=== PATIENT | male | born 1955 | race African-American/Black ===

== ENCOUNTER 2016-11-08 06:18 | Emergency (ER) | payer SELFPAY ==
--- NOTE | 2016-11-08 06:57 | ER Document Report ---
ED Extremity Problem, Lower - General Mode of Arrival: Ambulatory Information source: Patient TRAVEL OUTSIDE OF THE [place] IN LAST 30 DAYS: No - HPI Patient complains to provider of: Pain, Swelling Location: Ankle - right, Knee - right, Great Toe - right Occurred: Other - 2 weeks Onset/Duration: Persistent Recent injury: No - General Chief Complaint: Ankle Pain Stated Complaint: ANKLE PAIN Time Seen by Provider: 11/08/16 06:44 Notes: Patient is a 61 year old male with a history of hypertension and gout who presents to the ED with complaints of right great toe, right ankle/Achilles tendon and right knee pain and swelling with onset 2 weeks. Patient thinks this is a typical gout flare up for him. He states normally he only experiences gout in his toe but this time he is also experiencing similar symptoms in his ankle and knee. Patient has been wearing a brace on his right knee to help bring the swelling down. He denies any known accidents or injuries. (JULIO LARSEN) - Related Data Allergies/Adverse Reactions: No Known Drug Allergies Allergy (Verified 11/08/16 06:29) Past Medical History - General Information source: Patient - Social History Smoking Status: Unknown if Ever Smoked Family History: Reviewed & Not Pertinent - Past Medical History Cardiac Medical History: Reports: Hx Hypertension Renal/ Medical History: Denies: Hx Peritoneal Dialysis Musculoskeltal Medical History: Reports Hx Gout - Immunizations Hx Diphtheria, Pertussis, Tetanus Vaccination: Yes Review of Systems - Review of Systems Constitutional: No symptoms reported EENT: No symptoms reported Cardiovascular: No symptoms reported Respiratory: See HPI. denies: Short of breath Gastrointestinal: See HPI. denies: Abdominal pain Genitourinary: No symptoms reported Male Genitourinary: No symptoms reported Musculoskeletal: See HPI, Joint pain - right knee, ankle and great toe, Joint swelling - right knee, ankle and great toe Skin: No symptoms reported Hematologic/Lymphatic: No symptoms reported Neurological/Psychological: See HPI. denies: Headaches Physical Exam - General General appearance: Appears well, Alert In distress: None - HEENT Head: Normocephalic, Atraumatic Eyes: Normal Extraocular movements intact: Yes Pupils: PERRL - Respiratory Respiratory status: No respiratory distress Breath sounds: Normal - Cardiovascular Rhythm: Regular Heart sounds: Normal auscultation Murmur: No Pulses: Normal: Dorsalis pedis - Abdominal Inspection: Normal Distension: No distension Tenderness: Nontender - Extremities General upper extremity: Normal inspection, Normal ROM General lower extremity: Other - Normal pedal pulse on right, no significant edema, there is a right knee effusion, good ROM of right knee to 110 degrees. no erythema to the right lower extremity. lower extremity exam is otherwise normal - Neurological Neuro grossly intact: Yes - Psychological Associated symptoms: Normal affect, Normal mood - Skin Skin Temperature: Warm Skin Moisture: Dry Skin Color: Normal - Vital signs Vitals: Temp Pulse Resp BP Pulse Ox 98.4 F 86 20 216/111 H 94 11/08/16 06:29 11/08/16 06:29 11/08/16 06:29 11/08/16 06:29 11/08/16 06:29 Course - Re-evaluation Re-evalutation: 11/08/16 07:09 Pleasant 61-year-old male with history of gout in the past, now with discomfort in his right great toe, right posterior ankle/Achilles tendon, and right knee. I discussed the differential diagnosis with the patient, including gout as well as possible infection. We have discussed tapping the knee to obtain a fluid specimen, but the patient declines this. We will initiate colchicine and prednisone for presumed gout. He has an urgent care center that helps him care for his blood pressure issues. I have asked him to follow-up with them both for this chief complaint as well as his ongoing hypertension. (JELANI ROWAN) - Vital Signs Vital signs: Temp Pulse Resp BP Pulse Ox 98.0 F 76 20 189/121 H 97 11/08/16 07:48 11/08/16 07:48 11/08/16 07:48 11/08/16 07:48 11/08/16 07:48 Discharge - Discharge Clinical Impression: Gout flare Qualifiers: Gout site: ankle Condition: Good Disposition: HOME, SELF-CARE Instructions: Gout ([facility]), High Blood Pressure ([facility]), Steroid Medication Additional Instructions: Follow-up with your regular doctors for your high blood pressure. Take colchicine and prednisone as prescribed. Return to the emergency department if the pain worsens, if you have redness or more warmth, or if you have other urgent concerns. Prescriptions: Colchicine [Colchicine 0.6 mg Tablet] 0.6 mg PO ASDIR PRN #14 tablet MDD 6 tablets PRN Reason: Prednisone 20 mg PO DAILY #5 tablet Scribe Documentation - Scribe Written by Sudha:: sudha Gentile, 11/08/2016, 0729 acting as scribe for :: Rubin
[2016-11-08] MEDS ORDERED: COLCHICINE 0.6 MG TABLET PO ONE (07:05)
[2016-11-08] MEDS ORDERED: PREDNISONE 20 MG TABLET PO ONE (07:05)
[2016-11-08 07:52] VITALS: BP 189/121
== END 2016-11-08 07:48 | disposition home or self-care (01) ==
LOC: ER 06:18
DX: M10.9 Gout, unspecified (principal); M25.571 Pain in right ankle and joints of right foot; M25.561 Pain in right knee; M79.89 Other specified soft tissue disorders; I10 Essential (primary) hypertension
CPT/HCPCS: 99283; J7512

== ENCOUNTER 2017-08-26 15:35 | Emergency (ER) | payer SELFPAY ==
--- NOTE | 2017-08-26 16:56 | ER Document Report ---
ED Medical Screen (RME) - General Chief Complaint: Urinary Problem Stated Complaint: GENERAL WEAKNESS Time Seen by Provider: 08/26/17 16:41 Notes: This 62-year-old male patient comes emergency room complaining of what sounds like stress incontinence for the last 3 weeks. He reports that he notices some urine leaking when he is doing heavy lifting or up walking around on the job. 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 There is no frequency, no dysuria. He is also running low on the blood pressure medication he was prescribed on ER visit here a month ago. I have greeted and performed a rapid initial assessment of this patient. A comprehensive ED assessment and evaluation of the patient, analysis of test results and completion of the medical decision making process will be conducted by additional ED providers. TRAVEL OUTSIDE OF THE [place] IN LAST 30 DAYS: No - Related Data Allergies/Adverse Reactions: No Known Drug Allergies Allergy (Verified 11/08/16 06:29) Past Medical History - Social History Chew tobacco use (# tins/day): No Frequency of alcohol use: Occasional Drug Abuse: None - Past Medical History Cardiac Medical History: Reports: Hx Hypertension Renal/ Medical History: Denies: Hx Peritoneal Dialysis Musculoskeltal Medical History: Reports Hx Arthritis, Reports Hx Gout - Immunizations Hx Diphtheria, Pertussis, Tetanus Vaccination: Yes Physical Exam - Vital signs Vitals: Temp Pulse Resp BP Pulse Ox 98.7 F 79 24 H 182/104 H 97 08/26/17 15:46 08/26/17 15:46 08/26/17 15:46 08/26/17 15:46 08/26/17 15:46 Course - Vital Signs Vital signs: Temp Pulse Resp BP Pulse Ox 98.7 F 79 24 H 182/104 H 97 08/26/17 15:46 08/26/17 15:46 08/26/17 15:46 08/26/17 15:46 08/26/17 15:46
[2017-08-26 17:34] LABS: APPEARANCE,URINE SLIGHTLY-CLOUDY; BILIRUBIN,URINE NEGATIVE (NEGATIVE); COLOR,URINE YELLOW; GLUCOSE, URINE NEGATIVE (NEGATIVE); KETONES,URINE NEGATIVE (NEGATIVE); LEUKOCYTE ESTERASE,URINE LARGE (NEGATIVE); NITRITE,URINE NEGATIVE (NEGATIVE); PROTEIN,URINE 30 mg/dL (NEGATIVE); URINE SPECIFIC GRAVITY 1.017
[2017-08-26] MEDS ORDERED: DOXYCYCLINE HYCLATE 100 MG TABLET PO ONE (17:35)
[2017-08-26] MEDS ORDERED: CEFTRIAXONE INJ 250 MG VIAL IM ONE (17:35)
[2017-08-26] MEDS ORDERED: AZITHROMYCIN 1 GM SUSP PACKET PO ONE (17:35)
[2017-08-26] MEDS ORDERED: LIDOCAINE 1% INJ-PF (10 MG/ML) 30 ML SDV INFIL ONE (17:35)
--- NOTE | 2017-08-26 17:40 | ER Document Report ---
ED GI/ - General Chief Complaint: Urinary Problem Stated Complaint: GENERAL WEAKNESS Time Seen by Provider: 08/26/17 16:41 Mode of Arrival: Ambulatory Information source: Patient Notes: Chief complaint: Urethral discharge History of complain:( obtained from----patient) 62 years old male who had a sexual partnership 3 weeks ago, presents today with one-week history of whitish discharge from the urethra. No dysuria frequency urgency. Denies any abdominal pain. Denies any other constitutional symptoms. Onset: As above Duration: Gradual Severity: Mild Quality: Not contributory Context: As above Exacerbating factor and relieving factors: Not applicable REVIEW OF SYSTEMS: CONSTITUTIONAL : Denies fever, chills, or sweats. Denies recent illness. EENT: Denies eye, ear, throat, or mouth pain or symptoms. Denies nasal or sinus congestion or discharge. Denies throat, tongue, or mouth swelling or difficulty swallowing. CARDIOVASCULAR: Denies chest pain. Denies palpitations or racing or irregular heart beat. Denies ankle edema. RESPIRATORY: Denies cough, cold, or chest congestion. Denies shortness of breath, difficulty breathing, or wheezing. GASTROINTESTINAL: Denies distention. Denies nausea, vomiting, or diarrhea. Denies blood in vomitus, stools, or per rectum. Denies black, tarry stools. Denies constipation. GENITOURINARY: Denies difficulty urinating, painful urination, burning, frequency, blood in urine, or discharge. FEMALE GENITOURINARY: Denies vaginal bleeding, heavy or abnormal periods, irregular periods. Denies vaginal discharge or odor. MUSCULOSKELETAL: Denies back or neck pain or stiffness. Denies joint pain or swelling. SKIN: Denies rash, lesions or sores. HEMATOLOGIC : Denies easy bruising or bleeding. LYMPHATIC: Denies swollen, enlarged glands. NEUROLOGICAL: Denies confusion or altered mental status. Denies passing out or loss of consciousness. Denies dizziness or lightheadedness. Denies headache. Denies weakness or paralysis or loss of use of either side. Denies problems with gait or speech. Denies sensory loss, numbness, or tingling. Denies seizures. PSYCHIATRIC: Denies anxiety or stress. Denies depression, suicidal ideation, or homicidal ideation. ALL OTHER SYSTEMS REVIEWED AND NEGATIVE. PHYSICAL EXAMINATION: GENERAL: Well-appearing, well-nourished and in no acute distress. HEAD: Atraumatic, normocephalic. EYES: Pupils equal round and reactive to light, extraocular movements intact, conjunctiva are normal. ENT: Nares patent, oropharynx clear without exudates. Moist mucous membranes. NECK: Normal range of motion, supple without lymphadenopathy LUNGS: Breath sounds clear to auscultation bilaterally and equal. No wheezes rales or rhonchi. HEART: Regular rate and rhythm without murmurs ABDOMEN: Soft, nontender, nondistended abdomen. No guarding, no rebound. No masses appreciated. Examination of genitals-deferred Musculoskeletal: Normal range of motion, no pitting or edema. No cyanosis. NEUROLOGICAL: Cranial nerves grossly intact. Normal speech, normal gait. Normal sensory, motor exams PSYCH: Normal mood, normal affect. SKIN: Warm, Dry, normal turgor, no rashes or lesions noted. Examination of the genitals-no obvious lesions noted, but whitish discharge per urethra noted. Dictation was performed using [employer] voice recognition software TRAVEL OUTSIDE OF THE [place] IN LAST 30 DAYS: No - HPI Patient complains to provider of: Dysuria Severity at maximum: Moderate - Related Data Allergies/Adverse Reactions: No Known Drug Allergies Allergy (Verified 11/08/16 06:29) Past Medical History - Social History Smoking Status: Current Every Day Smoker Chew tobacco use (# tins/day): No Frequency of alcohol use: Occasional Drug Abuse: None Family History: Reviewed & Not Pertinent Patient has suicidal ideation: No Patient has homicidal ideation: No - Past Medical History Cardiac Medical History: Reports: Hx Hypertension Renal/ Medical History: Denies: Hx Peritoneal Dialysis Musculoskeltal Medical History: Reports Hx Arthritis, Reports Hx Gout - Immunizations Hx Diphtheria, Pertussis, Tetanus Vaccination: Yes Review of Systems - Review of Systems Notes: Dictated Physical Exam - Vital signs Vitals: Temp Pulse Resp BP Pulse Ox 98.7 F 79 24 H 182/104 H 97 08/26/17 15:46 08/26/17 15:46 08/26/17 15:46 08/26/17 15:46 08/26/17 15:46 - Notes Notes: Dictated Course - Vital Signs Vital signs: Temp Pulse Resp BP Pulse Ox 98.7 F 79 24 H 182/104 H 97 08/26/17 15:46 08/26/17 15:46 08/26/17 15:46 08/26/17 15:46 08/26/17 15:46 - Laboratory Laboratory results interpreted by me: 08/26/17 17:15 Urine Protein 30 H Urine Blood SMALL H Urine Urobilinogen 2.0 H Ur Leukocyte Esterase LARGE H Discharge - Discharge Clinical Impression: STD (male), Urethritis Condition: Fair Disposition: HOME, SELF-CARE Instructions: Urethritis ([facility]) Prescriptions: Doxycycline Hyclate 100 mg PO BID #20 tablet
[2017-08-26 18:50] VITALS: BP 205/105
[2017-08-26 20:01] LABS: CHLAM PCR NOT DETECTED (NOT DETECT); GON PCR DETECTED (NOT DETECT)
== END 2017-08-26 18:49 | disposition home or self-care (01) ==
LOC: ER 15:35
DX: N34.2 Other urethritis (principal); A64 Unspecified sexually transmitted disease; I10 Essential (primary) hypertension; F17.200 Nicotine dependence, unspecified, uncomplicated
CPT/HCPCS: 99283; 96372; 81001; 87491; 87591; J3490; Q0144; J0696

== ENCOUNTER 2018-07-13 06:11 | Observation (INO) | payer MEDICARE ==
[2018-07-13] MEDS ORDERED: AMLODIPINE BESYLATE 5 MG TABLET PO ONE (06:35)
--- NOTE | 2018-07-13 06:39 | ER Document Report ---
ED General - General Chief Complaint: Shortness Of Breath Stated Complaint: DIFIICULTY BREATHING Time Seen by Provider: 07/13/18 06:29 TRAVEL OUTSIDE OF THE [place] IN LAST 30 DAYS: No - HPI Notes: Patient is a 63-year-old male that presents to the emergency department for chief complaint of shortness of breath. Patient reports chronic shortness of breath that became worse today. 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 He has been borrowing a friend's albuterol inhaler because his ran out a few months ago. He states the friend's inhaler ran out about a week ago. Patient denies increased sputum production but does have a cough. He denies fevers and chills. He denies associated chest pain and palpitations. Patient also has a history of hypertension but has not been on his medication for "a while" stating that he has a hard time getting to a doctor because of transportation issues. Past Medical History: Hypertension, COPD Past Surgical History: Negative Social History: One pack per day cigarettes, denies drug use. Reports occasional alcohol. Family History: Reviewed and noncontributory for presenting illness Allergies: Reviewed, see documented allergy list. REVIEW OF SYSTEMS: CONSTITUTIONAL : No fever No chills No diaphoresis No recent illness EENT: No vision changes No congestion No sore throat CARDIOVASCULAR: No chest pain No palpitations RESPIRATORY: shortness of breath cough difficulty breathing GASTROINTESTINAL: No abdominal pain No nausea No vomiting No diarrhea GENITOURINARY: No dysuria No hematuria No difficulty urinating MUSCULOSKELETAL: No back pain No leg pain No arm pain SKIN: No rashes No lesions LYMPHATIC: No swollen, enlarged glands. NEUROLOGICAL: No lightheadedness No headache No weakness No paresthesias PSYCHIATRIC: No anxiety No depression PHYSICAL EXAMINATION: Vital signs reviewed, nursing noted reviewed. GENERAL: Well-appearing, well-nourished and in no acute distress. HEAD: Atraumatic, normocephalic. EYES: Eyes appear normal, extraocular movements intact, sclera anicteric, conjunctiva are normal. ENT: nares patent, oropharynx clear without exudates. Moist mucous membranes. NECK: Normal range of motion, supple without lymphadenopathy LUNGS: Breath sounds diminished to auscultation bilaterally and equal. No wheezes rales or rhonchi. No accessory muscle use HEART: Regular rate and rhythm without murmurs ABDOMEN: Soft, nontender, normoactive bowel sounds. No rebound, guarding, or rigidity. No masses appreciated. EXTREMITIES: Nontender, good range of motion, trace pretibial edema, nonpitting. NEUROLOGICAL: No focal neurological deficits. Moves all extremities spontaneously Motor and sensory grossly intact on exam. PSYCH: Normal mood, normal affect. SKIN: Warm, Dry, normal turgor, no rashes or lesions noted on exposed skin - Related Data Allergies/Adverse Reactions: No Known Drug Allergies Allergy (Verified 11/08/16 06:29) Past Medical History - Social History Smoking Status: Current Every Day Smoker Family History: Reviewed & Not Pertinent - Past Medical History Cardiac Medical History: Reports: Hx Hypertension Renal/ Medical History: Denies: Hx Peritoneal Dialysis Musculoskeletal Medical History: Reports Hx Arthritis, Reports Hx Gout - Immunizations Hx Diphtheria, Pertussis, Tetanus Vaccination: Yes Physical Exam - Vital signs Vitals: Temp Pulse Resp BP Pulse Ox 98.3 F 71 32 H 218/122 H 91 L 07/13/18 06:11 07/13/18 06:11 07/13/18 06:11 07/13/18 06:11 07/13/18 06:11 Course - Re-evaluation Re-evalutation: 07/13/18 06:38 Vitals reviewed. Nursing notes reviewed. Patient oxygen was 92% on room air during my conversation with him. He is not in any acute respiratory distress. He does have an elevated blood pressure and was given a dose of the amlodipine he was previously prescribed. Will monitor blood pressure closely and continue to dose medication as needed. 07/13/18 08:22 After his home dose of amlodipine patient did have blood pressure improvement but it was minimal. He was then given a dose of hydralazine which also had minimal improvement. Patient will be started on Cardene for further blood pressure control. He does have slight elevation of troponin at 0.044. Patien t's creatinine is 1.44. He has had elevated creatinine in the past however his most recent comparison was normal. Patient is requiring further blood pressure management and monitoring of endorgan damage. He will be admitted to the hospital for further care. His care was discussed with Dr. Jay who accepts admission. Laboratory 07/13/18 07/13/18 07/13/18 06:35 06:35 06:35 WBC 6.8 RBC 5.19 Hgb 16.4 Hct 49.0 MCV 95 MCH 31.5 MCHC 33.4 RDW 13.4 Plt Count 297 Seg Neutrophils % 46.0 Lymphocytes % 37.6 Monocytes % 14.9 H Eosinophils % 0.7 Basophils % 0.8 Absolute Neutrophils 3.1 Absolute Lymphocytes 2.5 Absolute Monocytes 1.0 Absolute Eosinophils 0.1 Absolute Basophils 0.1 Sodium 141.2 Potassium 4.1 Chloride 104 Carbon Dioxide 28 Anion Gap 9 BUN 12 Creatinine 1.44 H Est GFR ( Amer) > 60 Est GFR (Non-Af Amer) 49 L Glucose 99 Calcium 9.1 Troponin I 0.043 NT-Pro-B Natriuret Pep 2760 H Chest X-Ray 07/13/18 06:30 IMPRESSION: No acute cardiopulmonary findings. - Vital Signs Vital signs: Temp Pulse Resp BP Pulse Ox 98.3 F 71 34 H 211/116 H 94 07/13/18 06:11 07/13/18 06:11 07/13/18 08:01 07/13/18 08:01 07/13/18 08:01 - Laboratory Result Diagrams: 07/13/18 06:35 07/13/18 06:35 Laboratory results interpreted by me: 07/13/18 07/13/18 07/13/18 06:35 06:35 06:35 Monocytes % 14.9 H Creatinine 1.44 H Est GFR (Non-Af Amer) 49 L NT-Pro-B Natriuret Pep 2760 H - EKG Interpretation by Me Additional EKG results interpreted by me: 07/13/18 06:58 Interpreted by myself 0645: Normal sinus rhythm, rate 63, left axis, LVH, no STEMI Critical Care Note - Critical Care Note Total time excluding time spent on procedures (mins): 40 Comments: Critical care time 40 exclusive from separate billable procedures for a patient requiring complex medical decision making, and high potential for clinical deterioration. Time spent obtaining history from patient or surrogate, discussions with consultants, development of treatment plan with patient or surrogate, evaluation of patient's response to treatment, examination of patient, ordering and performing treatments and interventions, ordering and review of laboratory studies, re-evaluation of patient's condition, ordering and review of radiographic studies and review of old charts Discharge - Discharge Clinical Impression: Hypertensive emergency, Elevated troponin, Acute kidney injury, Shortness of breath Condition: Stable Disposition: ADMITTED INPATIENT Admitting Provider: Pierre (Hospitalist) Unit Admitted: ICU
[2018-07-13 06:46] LABS: ABSOLUTE BASOPHILS # (AUTO) 0.1 10^3/uL (0.0-0.2); ABSOLUTE EOSINOPHILS # (AUTO) 0.1 10^3/uL (0.0-0.6); ABSOLUTE LYMPHOCYTES (AUTO) 2.5 10^3/uL (0.5-4.7); ABSOLUTE NEUT (AUTO) 3.1 10^3/uL (1.7-8.2); BASOPHILS % (AUTO) 0.8 % (0-2); EOSINOPHILS % (AUTO) 0.7 % (0-6); HEMOGLOBIN 16.4 g/dL (13.5-17.0); LYMPHOCYTES % (AUTO) 37.6 % (13-45); MEAN CORPUSCULAR HEMOGLOBIN 31.5 pg (27.0-33.4); MEAN CORPUSCULAR HGB CONC 33.4 g/dL (32.0-36.0); MEAN CORPUSCULAR VOLUME 95 fl (80-97); MONOCYTES % (AUTO) 14.9 % (3-13); PLATELET COUNT 297 10^3/uL (150-450); RED BLOOD COUNT 5.19 10^6/uL (4.35-5.55); RED CELL DISTRIBUTION WIDTH 13.4 % (11.5-14.0); TOTAL CELLS COUNTED % (AUTO) 100 %; WHITE BLOOD COUNT 6.8 10^3/uL (4.0-10.5)
[2018-07-13 07:01] LABS: ANION GAP 9 (5-19); BLOOD UREA NITROGEN 12 mg/dL (7-20); CALCIUM 9.1 mg/dL (8.4-10.2); CARBON DIOXIDE 28 mmol/L (22-30); CHLORIDE 104 mmol/L (98-107); GLUCOSE 99 mg/dL (75-110); POTASSIUM 4.1 mmol/L (3.6-5.0); SODIUM 141.2 mmol/L (137-145)
[2018-07-13 07:17] LABS: TROPONIN I 0.043 ng/mL
[2018-07-13] MEDS ORDERED: HYDRALAZINE HCL INJ/PF 20 MG/1 ML SDV IV ONE (07:21)
--- NOTE | 2018-07-13 07:23 | RADIOLOGY REPORT (SQ) ---
EXAM DESCRIPTION: XR CHEST 1 VIEW COMPLETED DATE/TME: 07/13/2018 06:30 CLINICAL HISTORY: 63 years Male, shortness of breath COMPARISON: 03/22/15 NUMBER OF VIEWS/TECHNIQUE: 1/AP FINDINGS: Increased lung volume, clear parenchyma, normal cardiac silhouette, and intact bony thorax.Atherosclerotic vascular disease. IMPRESSION: No acute cardiopulmonary findings.
[2018-07-13] MEDS: NICARDIPINE HCL RTU, ISO-OS 20 MG/200 ML RTUINJ IV PRN ×2 (08:23→20:14)
--- NOTE | 2018-07-13 09:43 | EKG REPORT ---
SEVERITY:- ABNORMAL ECG - SINUS RHYTHM LEFT ATRIAL ABNORMALITY LVH WITH SECONDARY REPOLARIZATION ABNORMALITY : Confirmed by: Rosibel Mendes MD 13-Jul-2018 09:41:35
--- NOTE | 2018-07-13 09:43 | EKG REPORT ---
SEVERITY:- ABNORMAL ECG - SINUS RHYTHM LEFT ATRIAL ABNORMALITY LEFT AXIS DEVIATION LVH WITH SECONDARY REPOLARIZATION ABNORMALITY : Confirmed by: Rosibel Mendes MD 13-Jul-2018 09:41:31
[2018-07-13] MEDS ORDERED: ONDANSETRON HCL INJ/PF 4 MG/2 ML SDV IV PRN (11:03)
[2018-07-13] MEDS ORDERED: OXYCODONE-ACETAMINOPHEN 5-325 MG TABLET PO PRN (11:03)
--- NOTE | 2018-07-13 11:03 | PDOC H&P ---
History of Present Illness Admission Date/PCP: 07/13/18 08:32 History of Present Illness: PINEDA KATE is a 63 year old black male patient with past medical history of hypertension, COPD tobacco dependence patient smokes a pack a day presented with shortness of breath. Patient states that he has been in his usual baseline state of health up until 3 weeks when he started to have shortness of breath which is getting worse progressively. Patient is noncompliant with his medication. He has not seen a doctor for a year and he has not taken his blood pressure medications for months. On arrival at ER patient found to have markedly elevated blood pressure of 219/122. Patient has been started on Cardene drip. His initial blood work shows creatinine of 1.44 BNP of 2700, and his troponin set is 0.043 and the second one 0.039. Chest x- ray reported as no acute cardiopulmonary pathology. Patient does not complain of any chest pain, fever, palpitation, cough or diaphoresis. No EKG changes. He does not have any nausea vomiting, abdominal pain or diarrhea. Past Medical History Cardiac Medical History: Reports: Hypertension Pulmonary Medical History: Reports: Chronic Obstructive Pulmonary Disease (COPD) Musculoskeltal Medical History: Reports: Arthritis, Gout Social History Smoking Status: Current Every Day Smoker - Advance Directive Resuscitation Status: Full Code Family History Family History: Reviewed & Not Pertinent Parental Family History Reviewed: Yes Children Family History Reviewed: Yes Sibling(s) Family History Reviewed.: Yes Medication/Allergy Allergies/Adverse Reactions: No Known Drug Allergies Allergy (Verified 11/08/16 06:29) Review of Systems Constitutional: ABSENT: chills, fever(s), headache(s), weight gain, weight loss Eyes: ABSENT: visual disturbances Ears: ABSENT: hearing changes Cardiovascular: ABSENT: chest pain, dyspnea on exertion, edema, orthropnea, palpitations Respiratory: PRESENT: dyspnea Gastrointestinal: ABSENT: abdominal pain, constipation, diarrhea, hematemesis, hematochezia, nausea, vomiting Genitourinary: ABSENT: dysuria, hematuria Musculoskeletal: ABSENT: joint swelling Integumentary: ABSENT: rash, wounds Neurological: ABSENT: abnormal gait, abnormal speech, confusion, dizziness, focal weakness, syncope Psychiatric: ABSENT: anxiety, depression, homidical ideation, suicidal ideation Endocrine: ABSENT: cold intolerance, heat intolerance, polydipsia, polyuria Hematologic/Lymphatic: ABSENT: easy bleeding, easy bruising Physical Exam Vital Signs: Temp Pulse Resp BP Pulse Ox 98.3 F 71 15 166/116 H 94 07/13/18 06:11 07/13/18 06:11 07/13/18 10:01 07/13/18 10:01 07/13/18 10:01 Intake & Output 07/12/18 07/13/18 07/14/18 06:59 06:59 06:59 Intake Total 59 Balance 59 Weight 81.8 kg General appearance: PRESENT: no acute distress Head exam: PRESENT: atraumatic Eye exam: PRESENT: conjunctiva pink Neck exam: ABSENT: carotid bruit, JVD, lymphadenopathy, thyromegaly Respiratory exam: PRESENT: clear to auscultation jacy. ABSENT: rales, rhonchi, wheezes Cardiovascular exam: PRESENT: RRR. ABSENT: diastolic murmur, rubs, systolic murmur Pulses: PRESENT: normal dorsalis pedis pul GI/Abdominal exam: PRESENT: normal bowel sounds, soft. ABSENT: distended, guarding, mass, organolmegaly, rebound, tenderness Neurological exam: PRESENT: alert, awake, oriented to time, oriented to situation Results Laboratory Results: 07/13/18 06:35 07/13/18 06:35 07/13/18 07/13/18 06:35 06:35 WBC 6.8 RBC 5.19 Hgb 16.4 Hct 49.0 MCV 95 MCH 31.5 MCHC 33.4 RDW 13.4 Plt Count 297 Seg Neutrophils % 46.0 Lymphocytes % 37.6 Monocytes % 14.9 H Eosinophils % 0.7 Basophils % 0.8 Absolute Neutrophils 3.1 Absolute Lymphocytes 2.5 Absolute Monocytes 1.0 Absolute Eosinophils 0.1 Absolute Basophils 0.1 Sodium 141.2 Potassium 4.1 Chloride 104 Carbon Dioxide 28 Anion Gap 9 BUN 12 Creatinine 1.44 H Est GFR ( Amer) > 60 Est GFR (Non-Af Amer) 49 L Glucose 99 Calcium 9.1 07/13/18 07/13/18 06:35 09:27 Troponin I 0.043 0.039 NT-Pro-B Natriuret Pep 2760 H Impressions: Chest X-Ray 07/13/18 06:30 IMPRESSION: No acute cardiopulmonary findings. Assessment and Plan - Diagnosis (1) Non-STEMI (non-ST elevated myocardial infarction) Is this a current diagnosis for this admission?: Yes Plan: Patient will be started on aspirin, Plavix, therapeutic dose of Lovenox. I will request for 3rd set troponin. cardiac monitor. Next stress test (2) Hypertensive emergency Is this a current diagnosis for this admission?: Yes Plan: Patient shows shortness of breath, acute kidney injury and elevated troponin. We will continue Cardene drip and switch him to p.o. antihypertensive medication and patient will be admitted to ICU. (3) COPD exacerbation Is this a current diagnosis for this admission?: Yes Plan: We will keep on supplemental oxygen, bronchodilator and Solu-Medrol. (4) Tobacco dependence Is this a current diagnosis for this admission?: Yes Plan: She is counseled and encouraged to quit smoking and he voiced agreement. - Inpatient Certification Medical Necessity: Need Close Monitoring Due to Risk of Patient Decompensation, Need For IV Fluids, Need for Nebulizer Therapy and Monitoring of Response
[2018-07-13] MEDS ORDERED: REGADENOSON INJ 0.4 MG/5 ML DISP.SYRIN IV ONE (11:24)
[2018-07-13] MEDS ORDERED: METOPROLOL TARTRATE 100 MG TABLET PO ONE (12:00)
[2018-07-13] MEDS ORDERED: ASPIRIN 325 MG TABLET PO ONE (12:00)
[2018-07-13] MEDS ORDERED: CLOPIDOGREL BISULFATE 75 MG TABLET PO ONE (12:00)
[2018-07-13] MEDS: IPRATROPIUM/ALBUTEROL 0.5-2.5 MG/3 ML AMPUL NEB SCH ×4 (12:39→23:50)
[2018-07-13] MEDS: ENOXAPARIN SODIUM INJ 80 MG/0.8 ML DISP.SYRIN SUBCUT SCH ×2 (13:10→22:25)
[2018-07-13] MEDS: DOCUSATE SODIUM 100 MG CAPSULE PO SCH (20:15)
[2018-07-13] MEDS ORDERED: ATORVASTATIN CALCIUM 20 MG TABLET PO SCH (22:00)
[2018-07-13] MEDS: METOPROLOL TARTRATE 50 MG TABLET PO SCH (22:25)
[2018-07-13] MEDS: FAMOTIDINE 20 MG TABLET PO SCH (22:25)
[2018-07-14] MEDS: NICARDIPINE HCL RTU, ISO-OS 20 MG/200 ML RTUINJ IV PRN ×2 (00:24→04:36)
[2018-07-14] MEDS: IPRATROPIUM/ALBUTEROL 0.5-2.5 MG/3 ML AMPUL NEB SCH ×4 (04:27→15:51)
[2018-07-14 05:38] LABS: ABSOLUTE BASOPHILS # (AUTO) 0.1 10^3/uL (0.0-0.2); ABSOLUTE EOSINOPHILS # (AUTO) 0.1 10^3/uL (0.0-0.6); ABSOLUTE MONOCYTES (AUTO) 0.9 10^3/uL (0.1-1.4); ABSOLUTE NEUT (AUTO) 2.7 10^3/uL (1.7-8.2); EOSINOPHILS % (AUTO) 0.9 % (0-6); HEMATOCRIT 49.2 % (37.9-51.0); HEMOGLOBIN 16.6 g/dL (13.5-17.0); MEAN CORPUSCULAR HEMOGLOBIN 31.9 pg (27.0-33.4); MEAN CORPUSCULAR HGB CONC 33.7 g/dL (32.0-36.0); MEAN CORPUSCULAR VOLUME 95 fl (80-97); MONOCYTES % (AUTO) 15.3 % (3-13); PLATELET COUNT 298 10^3/uL (150-450); RED CELL DISTRIBUTION WIDTH 13.5 % (11.5-14.0); SEGMENTED NEUTROPHILS % (AUTO) 47.8 % (42-78); TOTAL CELLS COUNTED % (AUTO) 100 %; WHITE BLOOD COUNT 5.7 10^3/uL (4.0-10.5)
[2018-07-14 05:57] LABS: ANION GAP 9 (5-19); BLOOD UREA NITROGEN 14 mg/dL (7-20); CALCIUM 8.9 mg/dL (8.4-10.2); CARBON DIOXIDE 24 mmol/L (22-30); CHLORIDE 103 mmol/L (98-107); GLUCOSE 105 mg/dL (75-110); POTASSIUM 3.9 mmol/L (3.6-5.0); SODIUM 136.3 mmol/L (137-145); TRIGLYCERIDES 126 mg/dL (<150)
[2018-07-14 05:58] LABS: CHOLESTEROL 182.14 mg/dL (0-200)
[2018-07-14 06:08] LABS: DIRECT LDL 101 mg/dL (<100)
[2018-07-14] MEDS ORDERED: ASPIRIN 325 MG TABLET PO SCH (10:00)
[2018-07-14] MEDS ORDERED: CLOPIDOGREL BISULFATE 75 MG TABLET PO SCH (10:00)
[2018-07-14 11:40] LABS: APPEARANCE,URINE CLOUDY; BILIRUBIN,URINE NEGATIVE (NEGATIVE); COLOR,URINE YELLOW; GLUCOSE, URINE NEGATIVE (NEGATIVE); KETONES,URINE NEGATIVE (NEGATIVE); LEUKOCYTE ESTERASE,URINE LARGE (NEGATIVE); NITRITE,URINE NEGATIVE (NEGATIVE); PROTEIN,URINE 30 mg/dL (NEGATIVE); URINE SPECIFIC GRAVITY 1.015; UROBILINOGEN,URINE NEGATIVE mg/dL (<2.0)
[2018-07-14] MEDS: DOCUSATE SODIUM 100 MG CAPSULE PO SCH ×2 (12:13→17:30)
[2018-07-14] MEDS: FAMOTIDINE 20 MG TABLET PO SCH (12:14)
[2018-07-14] MEDS: ENOXAPARIN SODIUM INJ 80 MG/0.8 ML DISP.SYRIN SUBCUT SCH (12:14)
[2018-07-14] MEDS: METOPROLOL TARTRATE 50 MG TABLET PO SCH (12:14)
[2018-07-14] MEDS ORDERED: LOSARTAN POTASSIUM 50 MG TABLET PO SCH (13:00)
[2018-07-14] MEDS ORDERED: METOPROLOL TARTRATE 25 MG TABLET PO SCH (13:00)
--- NOTE | 2018-07-14 17:17 | PDOC DISCHARGE SUMMARY ---
General - Admit/Disc Date/PCP Admission Date/Primary Care Provider: 07/13/18 08:32 Discharge Date: 07/14/18 - Discharge Diagnosis (1) Non-STEMI (non-ST elevated myocardial infarction) Is this a current diagnosis for this admission?: Yes Summary: The patient was admitted for hypertensive emergency and placed on a nicardipine drip. His initial troponin was positive at 0.043. Troponins slowly decreased. His EKG had inverted T waves but it is indeterminate how old these are. The patient did have a nuclear stress test. There were no reversible areas of ischemia however it showed a significantly dilated cardiomyopathy with severely depressed ejection fraction. I spoke with cardiology. The patient will be discharged on beta-tano, carb, aspirin and statin therapy. (2) Hypertensive emergency Is this a current diagnosis for this admission?: Yes Summary: As noted above the patient was initiated on nicardipine drip and subsequently tapered off. Blood pressures are improved with metoprolol and losartan. After discovering his dilated cardiomyopathy cardiology suggested adding hydralazine as well. He will follow-up with cardiology this week. (3) Dilated cardiomyopathy Is this a current diagnosis for this admission?: Yes Summary: Etiology is unknown at this time. Ejection fraction is severely depressed. Cardiology will determine next steps including consideration of defibrillator and anticoagulation. (4) Acute kidney injury Is this a current diagnosis for this admission?: Yes Summary: The patient's serum creatinine was elevated on admission. At the time of discharge it is improved but still outside of the normal range. Continue to encourage fluids and follow-up laboratory studies as an outpatient. (5) Acute cystitis Is this a current diagnosis for this admission?: Yes Summary: The patient was complaining of dysuria. A specimen was sent this morning. It had marked white blood cells and leukocyte esterase. A culture is pending. I have elected to discharge the patient with levofloxacin therapy at this time. If culture indicates the need for a change we can certainly contact the patient and change his antibiotic therapy. - Additional Information Resuscitation Status: Full Code Discharge Diet: Cardiac Discharge Activity: Activity As Tolerated, Balance Activity w/Rest Prescriptions: Aspirin [Ecotrin 81 mg EC Tablet] 81 mg PO DAILY 30 Days #30 tabec Atorvastatin Calcium [Lipitor 20 mg Tablet] 20 mg PO QHS #30 tablet Hydralazine HCl [Apresoline 10 mg Tablet] 10 mg PO BID 30 Days #60 tablet Levofloxacin [Levaquin 500 mg Tablet] 500 mg PO DAILY #10 tablet Losartan Potassium [Cozaar 50 mg Tablet] 50 mg PO DAILY 30 Days #30 tablet Metoprolol Succinate [Toprol Xl 50 mg Tab.sr] 50 mg PO DAILY #30 tab.sr.24h Home Medications: Aspirin [Ecotrin 81 mg EC Tablet] 81 mg PO DAILY 30 Days #30 tabec 07/14/18 Atorvastatin Calcium [Lipitor 20 mg Tablet] 20 mg PO QHS #30 tablet 07/14/18 Hydralazine HCl [Apresoline 10 mg Tablet] 10 mg PO BID 30 Days #60 tablet 07/14/18 Levofloxacin [Levaquin 500 mg Tablet] 500 mg PO DAILY #10 tablet 07/14/18 Losartan Potassium [Cozaar 50 mg Tablet] 50 mg PO DAILY 30 Days #30 tablet 07/14/18 Metoprolol Succinate [Toprol Xl 50 mg Tab.sr] 50 mg PO DAILY #30 tab.sr.24h 07/14/18 History of Present Illness Patient complains of: Increased shortness of breath History of Present Illness: PINEDA KATE is a 63 year old male who presented with 3 weeks of slowly increasing shortness of breath. He is noncompliant with medications despite a past medical history of hypertension and COPD. He continues to smoke a pack of cigarettes daily. Initial blood pressure evaluation in the emergency department was 219/122. Patient was started on nicardipine drip. Serum creatinine was slightly elevated likely secondary to the marked hypertension. Serum troponin was elevated 0.043 as well. There is no complaints of chest pain, fever or palpitations. There is no cough or diaphoresis. EKG revealed inverted T waves but there is no previous EKG to compare. The patient was referred to the hospital service for admission. Hospital Course Hospital Course: See details above. In summary the patient was weaned from the nicardipine drip. He was started on metoprolol and losartan. After the dilated cardiomyopathy was discovered on stress testing hydralazine was added. He was also started on statin therapy and an aspirin daily. There were no reversible areas of ischemia noted on the stress test. The patient will follow-up with cardiology. He needs to stop smoking. He was prescribed antibiotics for the likely acute cystitis. Physical Exam Vital Signs: Temp Pulse Resp BP Pulse Ox 97.8 F 62 19 171/99 H 95 07/14/18 13:43 07/14/18 13:43 07/14/18 13:43 07/14/18 13:43 07/14/18 13:43 Intake & Output 07/13/18 07/14/18 07/15/18 06:59 06:59 06:59 Intake Total 1365 Output Total 2410 200 Balance -1045 -200 Weight 81.8 kg 81 kg General appearance: PRESENT: no acute distress, cooperative, well-developed Head exam: PRESENT: atraumatic, normocephalic Eye exam: PRESENT: conjunctiva pink. ABSENT: scleral icterus Ear exam: PRESENT: normal external ear exam Mouth exam: PRESENT: moist, neck supple, tongue midline Respiratory exam: PRESENT: clear to auscultation jacy, symmetrical, unlabored. ABSENT: accessory muscle use, rales, rhonchi, tachypnea, wheezes Cardiovascular exam: PRESENT: RRR, +S1, +S2, systolic murmur - 2/6 murmur GI/Abdominal exam: PRESENT: normal bowel sounds, soft. 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 ABSENT: pedal edema Musculoskeletal exam: PRESENT: ambulatory, normal inspection Neurological exam: PRESENT: alert, awake, oriented to person, oriented to place, oriented to time, oriented to situation, CN II-XII grossly intact. ABSENT: mo tor sensory deficit Psychiatric exam: PRESENT: flat affect. ABSENT: agitated, anxious Focused psych exam: ABSENT: delusional, restlessness Skin exam: PRESENT: dry, warm. ABSENT: rash Results Laboratory Results: 07/14/18 05:19 07/14/18 05:19 07/14/18 07/14/18 07/14/18 05:19 05:19 11:17 WBC 5.7 RBC 5.20 Hgb 16.6 Hct 49.2 MCV 95 MCH 31.9 MCHC 33.7 RDW 13.5 Plt Count 298 Seg Neutrophils % 47.8 Lymphocytes % 35.0 Monocytes % 15.3 H Eosinophils % 0.9 Basophils % 1.0 Absolute Neutrophils 2.7 Absolute Lymphocytes 2.0 Absolute Monocytes 0.9 Absolute Eosinophils 0.1 Absolute Basophils 0.1 Sodium 136.3 L Potassium 3.9 Chloride 103 Carbon Dioxide 24 Anion Gap 9 BUN 14 Creatinine 1.38 H Est GFR ( Amer) > 60 Est GFR (Non-Af Amer) 52 L Glucose 105 Calcium 8.9 Triglycerides 126 Cholesterol 182.14 LDL Cholesterol Direct 101 H VLDL Cholesterol 25.0 HDL Cholesterol 45 Urine Color YELLOW Urine Appearance CLOUDY Urine pH 5.0 Ur Specific Arrey 1.015 Urine Protein 30 H Urine Glucose (UA) NEGATIVE Urine Ketones NEGATIVE Urine Blood SMALL H Urine Nitrite NEGATIVE Ur Leukocyte Esterase LARGE H Urine WBC (Auto) >182 Urine RBC (Auto) 7 07/13/18 07/13/18 07/13/18 06:35 09:27 11:27 Troponin I 0.043 0.039 0.036 NT-Pro-B Natriuret Pep 2760 H Impressions: Chest X-Ray 07/13/18 06:30 IMPRESSION: No acute cardiopulmonary findings. Qualifiers - * PATIENT BEING DISCHARGED WITH ANY OF THE FOLLOWING DIAGNOSIS: ND ND Pt being discharged on Aspirin therapy?: Yes ND Pt being discharged on Statins?: Yes ND Pt discharged ACEI/ARBS?: Yes Acute Heart Failure Is this a Heart Failure Patient?: No Plan Time Spent: Greater than 30 Minutes
[2018-07-14 18:16] VITALS: BP 153/101
--- NOTE | 2018-07-14 20:24 | DRAGON STRESS TEST REPORT ---
Intravenous Lexiscan Cardiolite stress test using single photon emmision computerized tomography. Date of procedure: 07/14/2018. Ordering Provider: Dr. GRIMM. Patient's status: In Patient Indication: Shortness of breath and elevated troponin I and abnormal EKG.. Coronary risk factors: Age, hypertension, and tobacco abuse disorder. Resting EKG: Sinus Rhythm. LVH with strain pattern. Stress EKG: No changes of ischemia. The patient has no chest pain or discomfort, and there were no arrhythmias seen. Reason for termination: Protocol. Conclusions: Normal EKG and hemodynamic response to IV Lexiscan. Nuclear data: At rest the patient was given 12.30 millicuries of technetium 99m sestamibi injected intravenously. As per protocol rest non gated SPECT images were obtained. Subsequently the patient was given intravenous Lexiscan at a dose of 0.4 mg in 5 mL intravenously, followed by flush with normal saline. Subsequently the stress dose of 37.6 millicuries of technetium 99m sestamibi was injected intravenously. As per protocol stress gated images were obtained. Nuclear interpretation: Review of images showed that all segments of the myocardium had normal perfusion at rest, and normal perfusion post stress with IV Lexiscan. All segments of the myocardium had normal thickening by gated study. T. I D. ratio was normal at 1.19. The left ventricle was significantly dilated in the rest and stress images with moderate to severe global hypokinesis. This is consistent with dilated cardiomyopathy computer read rest, and stress left ventricular ejection fraction were 20 %, and 33 %, respectively. In spite of the dilated cardiomyopathy there was no transient ischemic dilatation of the left ventricle. Conclusion: 1. There is no scintigraphic evidence of Lexiscan induced myocardial ischemia. 2. There is no scintigraphic evidence of myocardial infarction/scar. 3. There is evidence of dilated cardiomyopathy with significantly reduced LV ejection fraction Recommendations: 1. Check echo for LV ejection fraction correlation. 2. Would recommend treating the patient with the beta-blockers and GLENIS inhibitors or ARB. 3. Aggressive risk factor modification, and treating the underlying co- morbidities. [facility]
== END 2018-07-14 18:30 | disposition home or self-care (01) ==
LOC: ER 06:11 → INTOOBSV 08:32 → EH 08:32 → ICU 11:44 → 5 07-14 13:49
PROVIDERS: ADMIT Internal Medicine; ATTEND Internal Medicine
DX: I21.4 Non-ST elevation (NSTEMI) myocardial infarction (principal); I16.1 Hypertensive emergency; I42.0 Dilated cardiomyopathy; N17.9 Acute kidney failure, unspecified; N30.00 Acute cystitis without hematuria; J44.1 Chronic obstructive pulmonary disease with (acute) exacerbation; F17.210 Nicotine dependence, cigarettes, uncomplicated; Z79.82 Long term (current) use of aspirin; Z79.899 Other long term (current) drug therapy; Z91.14 Patient's other noncompliance with medication regimen
CPT/HCPCS: 93005; 99291; 96374; 96375; 36415 ×2; 87086; 85025 ×2; 87088; 80048 ×2; 81001; 84484; 87186; 80061; 83880; 93017; 71045; 78452; 93010; 94640 ×3; G0378 ×3; A9500; J2785; A9270 ×13; J0360; J3490 ×4; J1650 ×2; Q9969; J7620

== ENCOUNTER 2019-03-09 19:19 | Emergency (ER) | payer SELFPAY ==
[2019-03-09 20:20] VITALS: BP 187/121
--- NOTE | 2019-03-09 20:58 | ER Document Report ---
HPI - HPI Time Seen by Provider: 03/09/19 20:47 Notes: Patient is a 64-year-old male with a history of hypertension, COPD tobacco dependence, gout who presents complaining of a gouty flareup to his right great toe and mildly to the right medial ankle without injury. Patient states that he has had gout before and this feels similar. He tried taking Motrin with minimal relief. He has no other concerns or complaints. Denies drug allergies. Pain does not radiate otherwise. Denies any headache, fever, URI, sore throat, chest pain, palpitations, syncope, cough, shortness of breath, wheeze, dyspnea, abdominal pain, nausea/vomiting/diarrhea, urinary retention, dysuria, hematuria, loss of control of bowel or bladder, numbness/tingling, saddle anesthesia, muscle paralysis/weakness, or rash. - ROS Systems Reviewed and Negative: Yes All other systems reviewed and negative Past Medical History - Social History Smoking Status: Current Every Day Smoker Family History: Reviewed & Not Pertinent - Past Medical History Cardiac Medical History: Reports: Hx Hypertension Pulmonary Medical History: Reports: Hx COPD Renal/ Medical History: Denies: Hx Peritoneal Dialysis Musculoskeletal Medical History: Reports Hx Arthritis, Reports Hx Gout Psychiatric Medical History: Denies: Hx Depression - Immunizations Hx Diphtheria, Pertussis, Tetanus Vaccination: Yes Vertical Provider Document - CONSTITUTIONAL Agree With Documented VS: Yes Notes: PHYSICAL EXAMINATION: GENERAL: Well-appearing, well-nourished and in no acute distress. LUNGS: Breath sounds clear to auscultation bilaterally and equal. No wheezes rales or rhonchi. HEART: Regular rate and rhythm without murmurs, rubs, gallops. Musculoskeletal: Rt foot/ankle: + mild swelling great toe, medial ankle area. No ecchymosis or deformity. FROM to passive/active. Strength 5+/5. N/V intact distal. + tenderness to the great toe as primary and mildly to the medial ankle area 2ndarily. Achilles intact. Lis Franc maneuver neg. Anterior drawer neg. Extremities: No cyanosis, clubbing, or edema b/l. Peripheral pulses 2+. Ca pillary refill less than 3 seconds. NEUROLOGICAL: Normal speech, limping gait. Normal sensory, motor exams PSYCH: Normal mood, normal affect. SKIN: Warm, Dry, normal turgor, no rashes or lesions noted. - INFECTION CONTROL TRAVEL OUTSIDE OF THE [place] IN LAST 30 DAYS: No Course - Re-evaluation Re-evalutation: 03/09/19 20:55 Patient is an afebrile, well-hydrated, 64-year-old male who presents to the ED with left great toe pain >left ankle which I suspect to be gout. Vitals are acceptable without any significant tachycardia, tachypnea, or hypoxia. PE is otherwise unremarkable for any neurovascular compromise, obvious tendon/ligament rupture, obvious fracture/dislocation, septic joint. No h/o DM. Has had elevated creatinine. Solu-medrol given IM today and he will go home with a steroid taper. Patient is nontoxic-appearing. Patient is able to ambulate and weight-bear although he is limping. No other labs or imaging warranted at this time based on H&P. Conservative measures otherwise for symptoms. Recheck with your PCM in 3-5 days. Consider consult orthopedics. Return to the ED with any worsening/concerning symptoms otherwise as reviewed in discharge. Patient is in agreement. - Vital Signs Vital signs: Temp Pulse Resp BP Pulse Ox 98.6 F 72 18 187/121 H 97 03/09/19 20:19 03/09/19 20:19 03/09/19 20:19 03/09/19 20:19 03/09/19 20:19 Discharge - Discharge Clinical Impression: Left foot pain Gout Qualifiers: Gout site: foot Gout etiology: unspecified cause Chronicity: acute Laterality: right Qualified Code(s): M10.9 - Gout, unspecified Condition: Stable Disposition: HOME, SELF-CARE Additional Instructions: Rest, Ice, Compression, Elevation Tylenol/ibuprofen as needed Light stretches daily Strength exercises as able Moist heat and massage may help F/u with your PCP in 3-5 days for a recheck Consider consult(s) with Orthopedics/physical therapy for ongoing/worsening symptoms Return to the ED with any worsening symptoms and/or development of fever, headache, chest pain, palpitations, syncope, shortness of breath, trouble breathing, abdominal pain, n/v/d, muscle weakness/paralysis, numbness/tingling, swelling, redness, or other worsening symptoms that are concerning to you. Prescriptions: Prednisone [Deltasone 10 mg Tablet] 10 mg PO DAILY #18 tablet Losartan Potassium 50 mg PO DAILY #30 tablet Metoprolol Succinate [Toprol Xl 50 mg Tab.sr] 50 mg PO DAILY #30 tab.sr.24h Forms: Elevated Blood Pressure, Smoking Cessation Education Referrals: PETEY BEATTY MD [ACTIVE STAFF] - Follow up as needed [facility] [Provider Group] - Follow up as needed
[2019-03-09] MEDS ORDERED: METHYLPREDNISOLONE INJ 125 MG/2 ML SDV IM ONE (21:00)
== END 2019-03-09 21:15 | disposition home or self-care (01) ==
LOC: ER 19:19
DX: M10.9 Gout, unspecified (principal); I10 Essential (primary) hypertension; J44.9 Chronic obstructive pulmonary disease, unspecified; F17.200 Nicotine dependence, unspecified, uncomplicated
CPT/HCPCS: 99283; 96372; J2930